=== PATIENT | female | born 1990 | race Caucasian/White ===

== ENCOUNTER → 2017-04-06 | Outpatient (CLI) | payer MEDICAID ==
[2017-04-06 14:22] LABS: ALANINE AMINOTRANSFERASE 17 U/L (9-52); ALBUMIN 3.8 g/dL (3.5-5.0); ALKALINE PHOSPHATASE 52 U/L (38-126); ANION GAP 11 (5-19); ASPARTATE AMINO TRANSFERASE 16 U/L (14-36); BILIRUBIN,DIRECT 0.2 mg/dL (0.0-0.4); BILIRUBIN,TOTAL 0.5 mg/dL (0.2-1.3); BLOOD UREA NITROGEN 9 mg/dL (7-20); CALCIUM 9.3 mg/dL (8.4-10.2); CARBON DIOXIDE 23 mmol/L (22-30); CHLORIDE 105 mmol/L (98-107); CREATININE RESULT 0.58 mg/dL (0.52-1.25); GLUCOSE 77 mg/dL (75-110); LDH 297 U/L (313-618); POTASSIUM 4.2 mmol/L (3.6-5.0); SODIUM 139.2 mmol/L (137-145); TOTAL PROTEIN 6.5 g/dL (6.3-8.2)
[2017-04-09 16:00] LABS: URINE PROTEIN 9.8 mg/dL (<12)
== END ==
LOC: OCH 12:35
PROVIDERS: ATTEND Nurse Practitioner Women's Health
DX: Z34.81 Encounter for supervision of other normal pregnancy, first trimester (principal)
CPT/HCPCS: 36415; 80053; 83615; 84156; 84550

== ENCOUNTER 2017-10-17 22:23 | Inpatient (IN) | payer MEDICAID ==
[2017-10-17 23:01] LABS: APPEARANCE,URINE CLOUDY; BILIRUBIN,URINE NEGATIVE (NEGATIVE); COLOR,URINE YELLOW; GLUCOSE, URINE NEGATIVE (NEGATIVE); KETONES,URINE NEGATIVE (NEGATIVE); LEUKOCYTE ESTERASE,URINE MODERATE (NEGATIVE); NITRITE,URINE NEGATIVE (NEGATIVE); PROTEIN,URINE NEGATIVE (NEGATIVE); URINE SPECIFIC GRAVITY 1.021
[2017-10-17 23:19] LABS: URINE AMPHETAMINES SCREEN NEGATIVE; URINE BARBITURATES SCREEN NEGATIVE; URINE BENZODIAZEPINES SCREEN NEGATIVE; URINE COCAINE SCREEN NEGATIVE; URINE MARIJUANA (THC) SCREEN NEGATIVE; URINE METHADONE SCREEN NEGATIVE; URINE PHENCYCLIDINE SCREEN NEGATIVE
--- NOTE | 2017-10-18 00:38 | Admission Physical ---
Datetime Report Generated by CPN: 10/18/2017 00:37 CURRENT ADMISSION Chief Complaint: Uterine Contractions Indication for Induction: Not Applicable Admit Impression : Term, Intrauterine Admit Plan: Initiate Labor Protocol ALLERGIES Medication Allergies: No Medication Allergies: No Known Allergies (10/18/2017) Latex: No Latex Allergies Food Allergies: N/a Environmental Allergies: N/A OBSTETRICAL HISTORY EDC: 10/13/2017 00:00 : 2 Para: 1 Term: 1 : 0 SAB: 0 IAB: 0 Ectopic: 0 Livin Cesareans: 0 VBACs: 0 Multiple Births: 0 Current Procedures: Ultrasound; NST Obstetrical History Comments: 2014 37 week , induced for PIH, 6lbs 4oz G2- current SEE RECORDS Alcohol: No Marijuana : No Cocaine: No Other Illicit Drugs: No Cigarettes: Never Smoker. [id number] PHYSICAL EXAM General: Normal HEENT: Normal Neurologic: Normal Thyroid: Normal Heart: Normal Lungs: Normal Breast: Deferred Back: Normal Abdomen: Normal Genitourinary Exam: Normal Extremities: Normal DTRs: Normal Pelvic Type: Adequate FETUS A EGA: 40.5 PLANS FOR LABOR AND DELIVERY Labor and Delivery: None INFORMED CONSENT Signature: with User ID: [email or web address]
[2017-10-18] MEDS ORDERED: DEXTROSE 5%-LACTATED RINGERS 1,000 ML IV PRN (00:39)
[2017-10-18] MEDS ORDERED: NALBUPHINE HCL INJ 10 MG/1 ML AMPULE INJ ONE (00:52)
[2017-10-18] MEDS ORDERED: OXYTOCIN/NORMAL SALINE 20 UNIT/1,000 ML RTUINJ ONE (00:55)
[2017-10-18] MEDS ORDERED: NALBUPHINE HCL INJ 10 MG/1 ML AMPULE ONE (00:55)
[2017-10-18] MEDS ORDERED: MISOPROSTOL 0.2 MG TABLET ONE (00:55)
[2017-10-18] MEDS ORDERED: LIDOCAINE 1% INJ-PF (10 MG/ML) 30 ML SDV ONE (00:55)
[2017-10-18 01:15] LABS: ABSOLUTE EOSINOPHILS # (AUTO) 0.1 10^3/uL (0.0-0.6); ABSOLUTE LYMPHOCYTES (AUTO) 2.6 10^3/uL (0.5-4.7); ABSOLUTE MONOCYTES (AUTO) 0.9 10^3/uL (0.1-1.4); ABSOLUTE NEUT (AUTO) 7.7 10^3/uL (1.7-8.2); BASOPHILS % (AUTO) 0.3 % (0-2); EOSINOPHILS % (AUTO) 0.6 % (0-6); HEMATOCRIT 30.1 % (36.0-47.0); HEMOGLOBIN 10.4 g/dL (12.0-15.5); LYMPHOCYTES % (AUTO) 23.1 % (13-45); MEAN CORPUSCULAR HEMOGLOBIN 30.7 pg (27.0-33.4); MEAN CORPUSCULAR HGB CONC 34.7 g/dL (32.0-36.0); MEAN CORPUSCULAR VOLUME 89 fl (80-97); MONOCYTES % (AUTO) 7.7 % (3-13); PLATELET COUNT 347 10^3/uL (150-450); SEGMENTED NEUTROPHILS % (AUTO) 68.3 % (42-78); TOTAL CELLS COUNTED % (AUTO) 100 %; WHITE BLOOD COUNT 11.3 10^3/uL (4.0-10.5)
[2017-10-18] MEDS ORDERED: OXYTOCIN 10 UNIT/ML VIAL ONE (05:21)
[2017-10-18] MEDS ORDERED: IBUPROFEN 800 MG TABLET ONE (05:36)
[2017-10-18] MEDS ORDERED: DIPH/PERTUSS(ACELL)/TETANUS VAC/PF 0.5 ML SYR (>=10YO) IM PRN (05:49)
[2017-10-18] MEDS ORDERED: ZOLPIDEM TARTRATE 5 MG TABLET PO PRN (05:49)
[2017-10-18] MEDS ORDERED: DIBUCAINE 1% OINTMENT 28 GM TP PRN (05:49)
[2017-10-18] MEDS ORDERED: BENZOCAINE/MENTHOL AEROSOL SPRAY 56 ML TOP PRN (05:49)
[2017-10-18] MEDS ORDERED: MEASLES,MUMPS&RUBELLA VACC/PF 0.5 ML VIAL SUBCUT PRN (05:49)
[2017-10-18] MEDS ORDERED: OXYTOCIN/NORMAL SALINE 20 UNIT/1,000 ML RTUINJ IV PRN (05:49)
[2017-10-18] MEDS ORDERED: ACETAMINOPHEN WITH CODEINE #3 TABLET PO PRN ×2 (05:49)
--- NOTE | 2017-10-18 07:01 | Delivery Summary ---
Del Sum A-C Datetime Report Generated by CPN: 10/18/2017 07:01 DELIVERY PERSONNEL DELIVERY PERSONNEL: [id number] Delivery Doctor:: Maris Barraza CNM Labor and Delivery Nurse:: Hedy Zaragoza RNethical hacker Nurse:: Corin Chaparro RN Laboratory Specialist/AURICULAR ACUPUNCTURIST: Brent Trotter CNA (Annotations: Data stored by [facility] on behalf of user) MATERNAL INFORMATION Delivery Anesthesia: None Medications After Delivery: Pitocin 10 Units IM Meds After Delivery Comment: Pitocin 20 units IM Maternal Complications: None Provider Comments: of viable male , head, shoulders, and body delivered without difficulty, with spontaneous cry and respirations, to maternal abdomen, very short cord, clamped X2 and cut free, spontaneous delivery of intact placetna, appears intact 3 VC, vagina and perineum inspected, 2nd degree vaginal laceration noted, repaired as above, hemostais acheived with external fundal massage and IV pitocin. Mother and in stable condition, routine pp care. LABOR SUMMARY EDC: 10/13/2017 00:00 No. Babies in Womb: 1 Attempted: No Labor Anesthesia: None LABOR INFORMATION Reason for Induction: Not Applicable Onset of Labor: 10/17/2017 22:40 Complete Dilatation: 10/18/2017 03:21 Oxytocin: N/A Group B Beta Strep: Negative Antibiotics # of Doses: 0 Antibiotics Time of Last Dose: N/A Name of Antibiotic Given: N/A Steroids Given: None Reason Steroids Not Administered: Not Applicable MEMBRANES Membranes Rupture Method: Artificial Rupture of Membranes: 10/18/2017 03:22 Length of Rupture (hr): 1.82 Amniotic Fluid Color: Clear Amniotic Fluid Amount: Moderate Amniotic Fluid Odor: Normal STAGES OF LABOR Stage 1 hr: 4 Stage 1 min: 41 Stage 2 hr: 1 Stage 2 min: 50 Stage 3 hr: 0 Stage 3 min: 6 Total Time in Labor hr: 6 Total Time in Labor min: 37 VAGINAL DELIVERY Episiotomy: None Laceration #1: Perineal Laceration Extension #1: Second Degree Laceration Repair: Yes Laceration Repair Note: repaired with 3-0 vicryl using lidocaine Sponge Count Correct: N/A Sharps Count Correct: N/A CSECTION DELIVERY Primary Indication: N/A Secondary Indication: N/A CSection Incidence: N/A Labor: N/A Elective: N/A CSection Incision: N/A BABY A INFORMATION Delivery Date/Time: 10/18/2017 05:11 Method of Delivery: Vaginal Born in Route : No : N/A Forceps: N/A Vacuum Extraction: N/A Shoulder Dystocia : No PRESENTATION/POSITION BABY A Presentation: Cephalic Cephalic Presentation: Vertex Vertex Position: Right Occipital Anterior Breech Presentation: N/A PLACENTA INFORMATION BABY A Placenta Delivery Time : 10/18/2017 05:17 Placenta Method of Delivery: Spontaneous Placenta Status: Delivered SCORES BABY A Heart Rate 1 min: >100 bpm Resp Effort 1 min: Good Cry Reflex Irritability 1 min: Cough or Sneeze or Pulls Away Muscle Tone 1 min: Active Motion Color 1 min: Blue/Pale Resuscitation Effort 1 min: Tactile Stimulation SCORE 1 MIN: 8 Heart Rate 5 min: >100 bpm Resp Effort 5 min: Good Cry Reflex Irritability 5 min: Cough or Sneeze or Pulls Away Muscle Tone 5 min: Active Motion Color 5 min: Body [place], Extremities Blue SCORE 5 MIN: 9 INFANT INFORMATION BABY A Gestational Age at Delivery: 40.5 Gestational Status: Full Term- 39- 40.6 Weeks Outcome : Liveborn Infant Condition : Stable Sex: Male IDENTIFICATION BABY A ID Band Number: [id number] Mother's Name Verified: Yes Infant RN Verifying Infant: K Shankar Rn/ B Kee RN WEIGHT/LENGTH BABY A Infant Birthweight (gm): 3500 Infant Weight (lb): 7 Infant Weight (oz): 11 Infant Length (in): 21.00 Length (cm): 53.34 CORD INFORMATION BABY A No. Cord Vessels: 3 Nuchal Cord : N/A Cord Blood Taken: Yes-For Storage (Mom's Blood type +) Suction: Mouth; Nose ASSESSMENT BABY A Infant Complications: None Physical Findings at Delivery: Caput Succedaneum; Molding of the Head Infant Respirations: Appears Normal Skin to Skin: Yes Skin to Skin Time (min): 60 Supervising Deputy/ALS Called : No Care By: Nkechi FortuneShankar RN Transferred To: Remains with Mother BABY B INFORMATION : N/A SIGNATURES Assignment: Renato Orellana MD Signature: with User ID: [email or web address] : with User ID: [email or web address]
[2017-10-18] MEDS: DOCUSATE SODIUM 100 MG CAPSULE PO SCH ×2 (09:11→17:23)
[2017-10-18] MEDS: FERROUS SULFATE 325 MG TABLET PO SCH ×2 (09:11→17:24)
[2017-10-18] MEDS: PRENATAL VITAMIN W DHA CAPSULE PO SCH (09:11)
[2017-10-18] MEDS: SENNOSIDES/DOCUSATE 8.6-50 MG 1 EACH TABLET PO SCH (09:12)
[2017-10-18] MEDS: IBUPROFEN 800 MG TABLET PO SCH ×3 (11:11→22:01)
[2017-10-18] MEDS ORDERED: DIPHENHYDRAMINE HCL 25 MG CAPSULE PO PRN (21:49)
[2017-10-19] MEDS: IBUPROFEN 800 MG TABLET PO SCH ×3 (06:25→22:25)
[2017-10-19 07:40] LABS: HEMATOCRIT 29.7 % (36.0-47.0); HEMOGLOBIN 10.1 g/dL (12.0-15.5); MEAN CORPUSCULAR HEMOGLOBIN 30.4 pg (27.0-33.4); MEAN CORPUSCULAR HGB CONC 34.2 g/dL (32.0-36.0); MEAN CORPUSCULAR VOLUME 89 fl (80-97); PLATELET COUNT 334 10^3/uL (150-450); RED BLOOD COUNT 3.34 10^6/uL (3.72-5.28); RED CELL DISTRIBUTION WIDTH 13.3 % (11.5-14.0); WHITE BLOOD COUNT 11.6 10^3/uL (4.0-10.5)
[2017-10-19] MEDS: SENNOSIDES/DOCUSATE 8.6-50 MG 1 EACH TABLET PO SCH (10:02)
[2017-10-19] MEDS: DOCUSATE SODIUM 100 MG CAPSULE PO SCH ×2 (10:02→18:35)
[2017-10-19] MEDS: FERROUS SULFATE 325 MG TABLET PO SCH ×2 (10:02→18:35)
[2017-10-19] MEDS: PRENATAL VITAMIN W DHA CAPSULE PO SCH (10:04)
--- NOTE | 2017-10-19 11:28 | PDOC PROGRESS REPORT ---
Subjective-OB Progress Note for:: 10/19/17 Subjective: Doing well, eating bkf, hsb at BS, Hsb sytates they do not want to circumcision , esting well, voiding Physical Exam (OB) Vital Signs: Temp Pulse Resp BP Pulse Ox 97.7 F 69 16 103/47 L 99 10/19/17 07:46 10/19/17 07:46 10/19/17 07:46 10/19/17 07:46 10/19/17 07:46 Intake & Output 10/18/17 10/19/17 10/20/17 06:59 06:59 06:59 Intake Total 800 Balance 800 Weight 69.7 kg - PIH/Pre-Eclampsia DTR's: 1 + Clonus: Negative Headache: Absent Epigastric Pain: No Visual Changes: No - Lochia Lochia Amount: Scant < 10 ml Lochia Color: Rubra/Red - Abdomen Description: Soft, Round Hernia Present: No Fundal Description: Firm, Midline Fundal Height: u/u - u/2 Objective-Diagnostic Laboratory: 10/19/17 07:17 10/19/17 07:17 WBC 11.6 H RBC 3.34 L Hgb 10.1 L Hct 29.7 L MCV 89 MCH 30.4 MCHC 34.2 RDW 13.3 Plt Count 334 Assessment and Plan(PN) - Assessment and Plan (1) Rubella nonimmune status, delivered, current hospitalization Is this a current diagnosis for this admission?: Yes - Time Spent with Patient Time with patient: Less than 15 minutes Medications reviewed and adjusted accordingly: Yes - Disposition Anticipated Discharge: Home Within: within 24 hours
[2017-10-20] MEDS: IBUPROFEN 800 MG TABLET PO SCH ×2 (05:26→14:05)
[2017-10-20 08:45] VITALS: BP 128/74
[2017-10-20] MEDS: DOCUSATE SODIUM 100 MG CAPSULE PO SCH (09:23)
[2017-10-20] MEDS: SENNOSIDES/DOCUSATE 8.6-50 MG 1 EACH TABLET PO SCH (09:23)
[2017-10-20] MEDS: PRENATAL VITAMIN W DHA CAPSULE PO SCH (09:23)
[2017-10-20] MEDS: FERROUS SULFATE 325 MG TABLET PO SCH (09:23)
--- NOTE | 2017-10-20 09:23 | PDOC DISCHARGE SUMMARY ---
Final Diagnosis Discharge Date: 10/20/17 - Final Diagnosis (1) Delivery normal Is this a current diagnosis for this admission?: Yes (2) Rubella nonimmune status, delivered, current hospitalization Is this a current diagnosis for this admission?: Yes Discharge Data - Discharge Medication Prescriptions: Docusate Sodium [Colace 100 mg Capsule] 100 mg PO BID #60 capsule Ferrous Sulfate [Feosol 325 mg Tablet] 325 mg PO BID #60 tablet Ibuprofen [Motrin 800 mg Tablet] 800 mg PO Q8 #60 tablet Home Medications: Albuterol Sulfate 2 puff PO ASDIR PRN 10/18/17 Prenat 115/Iron Fum/Folic/Dss [ 19 Tablet] 1 tab PO DAILY 10/18/17 Docusate Sodium [Colace 100 mg Capsule] 100 mg PO BID #60 capsule 10/20/17 Ferrous Sulfate [Feosol 325 mg Tablet] 325 mg PO BID #60 tablet 10/20/17 Ibuprofen [Motrin 800 mg Tablet] 800 mg PO Q8 #60 tablet 10/20/17 Gestational Age: 40.5 Reason(s) for Admission: Onset of Labor Procedures: NST Intrapartum Procedure(s): Spontaneous Vaginal Delivery Complication(s): Laceration-Perineal - Data Baby 1 Male at 1 minute: 8 at 5 minutes: 9 Weight: 3500 kg Home with Mother: Yes Complications: No - Diagnosis Test Laboratory: Temp Pulse Resp BP Pulse Ox 97.7 F 79 18 128/74 H 97 10/20/17 07:48 10/20/17 07:48 10/20/17 07:48 10/20/17 07:48 10/20/17 07:48 10/17/17 10/18/17 10/19/17 22:30 00:56 07:17 RBC 3.40 L 3.34 L Hgb 10.4 L 10.1 L Hct 30.1 L 29.7 L Urine Opiates Screen NEGATIVE - Discharge information/Instructions Discharge Activity: Activity As Tolerated, Pelvic Rest, No tub bath Discharge Diet: Regular Disposition: HOME, SELF-CARE Follow up with: [facility] in: 4, Weeks
== END 2017-10-20 17:20 | disposition home or self-care (01) | DRG 775 ==
LOC: LC 22:23 → LR 10-18 00:38 → 2S 10-18 07:56
PROVIDERS: ADMIT Obstetrics & Gynecology Gynecology; ATTEND Obstetrics & Gynecology Gynecology
PROC: 10E0XZZ Delivery of Products of Conception, External Approach (ICD-10-PCS; principal; 2017-10-18)
PROC: 0KQM0ZZ Repair Perineum Muscle, Open Approach (ICD-10-PCS; 2017-10-18)
PROC: 4A1HXCZ Monitoring of Products of Conception, Cardiac Rate, External Approach (ICD-10-PCS; 2017-10-18)
DX: O69.3XX0 Labor and delivery complicated by short cord, not applicable or unspecified (principal); O70.1 Second degree perineal laceration during delivery; Z37.0 Single live birth; Z3A.40 40 weeks gestation of pregnancy
CPT/HCPCS: 36415; 80307; 81005; 85025; 85027; 86592; 86850; 86900; 86901; J2300; J2590; J3490

== ENCOUNTER → 2017-10-27 | Outpatient (CLI) | payer MEDICAID ==
[2017-10-27 11:50] LABS: ABSOLUTE LYMPHOCYTES (AUTO) 1.8 10^3/uL (0.5-4.7); ABSOLUTE MONOCYTES (AUTO) 1.2 10^3/uL (0.1-1.4); ABSOLUTE NEUT (AUTO) 11.2 10^3/uL (1.7-8.2); BASOPHILS % (AUTO) 0.2 % (0-2); HEMATOCRIT 34.5 % (36.0-47.0); HEMOGLOBIN 11.7 g/dL (12.0-15.5); LYMPHOCYTES % (AUTO) 12.6 % (13-45); MEAN CORPUSCULAR HEMOGLOBIN 30.3 pg (27.0-33.4); MEAN CORPUSCULAR VOLUME 89 fl (80-97); MONOCYTES % (AUTO) 8.3 % (3-13); PLATELET COUNT 325 10^3/uL (150-450); RED BLOOD COUNT 3.87 10^6/uL (3.72-5.28); RED CELL DISTRIBUTION WIDTH 13.9 % (11.5-14.0); SEGMENTED NEUTROPHILS % (AUTO) 78.9 % (42-78); TOTAL CELLS COUNTED % (AUTO) 100 %; WHITE BLOOD COUNT 14.2 10^3/uL (4.0-10.5)
== END ==
LOC: OD 11:10
PROVIDERS: ATTEND Emergency Medicine
DX: R10.9 Unspecified abdominal pain (principal); R50.9 Fever, unspecified
CPT/HCPCS: 36415; 85025; 87086; 87088; 87186

== ENCOUNTER → 2017-11-16 | Outpatient (CLI) | payer MEDICAID ==
--- NOTE | 2017-11-16 18:31 | WOMENS IMAGING REPORT ---
EXAM DESCRIPTION: U/S BREAST UNILATERAL, COMPL COMPLETED DATE/TIME: 11/16/2017 8:00 am REASON FOR STUDY: BREAST MASS N63.0 UNSPECIFIED LUMP IN UNSPECIFIED BREAST COMPARISON: None. TECHNIQUE: Real-time and static grayscale imaging performed of the left whole breast targeted, patie nt has palpable abnormalities in the retroareolar region. Selected color Doppler images recorded. LIMITATIONS: None. FINDINGS: Patient is currently breast-feeding. She describes a palpable abnormality at the 12 o'martínez ck and 9 o'clock position left breast periareolar region. At the 12 o'clock position, a 2 x 1.6 cm simple cyst is present. At the 12 o'clock position a 6 x 5 mm cyst is present. At the 9 o'clock position a 6 x 6 mm cyst is present. IMPRESSION: Benign breast parenchymal cysts are present. No fluid-debris level with to suggest that these represent galactocele. BIRAD: 2 Benign findings. RECOMMENDATION: RECOMMENDED FOLLOW-UP: Follow-up as clinically indicated. COMMENT: The [employer] ([employer]) has developed recommendations for screening MRI of the breasts in certain patient populations, to be used in conjunction with mammography. Breast MRI s urveillance may be appropriate for women with more than 20% lifetime risk of developing breast cancer as determined by genetic testing, significant family history of the disease, or history of mantle r adiation for Hodgkins Disease. [employer]CR Practice Guidelines 2008. TECHNICAL DOCUMENTATION: JOB ID: [id number] indeni- All Rights Reserved Reading location - IP/workstation name: [email or web address]
== END ==
LOC: WI 07:33
PROVIDERS: ATTEND Student in an Organized Health Care Education/Training Program
DX: N60.02 Solitary cyst of left breast (principal); N63.42 Unspecified lump in left breast, subareolar
CPT/HCPCS: 76641

== ENCOUNTER 2017-12-14 09:10 | Day surgery (SDC) | payer MEDICAID ==
[2017-12-11 12:52] LABS: HEMATOCRIT 38.5 % (36.0-47.0); HEMOGLOBIN 13.3 g/dL (12.0-15.5); MEAN CORPUSCULAR HEMOGLOBIN 30.2 pg (27.0-33.4); MEAN CORPUSCULAR HGB CONC 34.6 g/dL (32.0-36.0); MEAN CORPUSCULAR VOLUME 87 fl (80-97); PLATELET COUNT 337 10^3/uL (150-450); RED BLOOD COUNT 4.42 10^6/uL (3.72-5.28); RED CELL DISTRIBUTION WIDTH 14.2 % (11.5-14.0); WHITE BLOOD COUNT 7.1 10^3/uL (4.0-10.5)
[2017-12-11 12:53] LABS: APPEARANCE,URINE CLEAR; BILIRUBIN,URINE NEGATIVE (NEGATIVE); COLOR,URINE YELLOW; GLUCOSE, URINE NEGATIVE (NEGATIVE); KETONES,URINE NEGATIVE (NEGATIVE); LEUKOCYTE ESTERASE,URINE NEGATIVE (NEGATIVE); NITRITE,URINE NEGATIVE (NEGATIVE); PROTEIN,URINE NEGATIVE (NEGATIVE); URINE SPECIFIC GRAVITY 1.021; UROBILINOGEN,URINE NEGATIVE mg/dL (<2.0)
[~2017-12-14 09:10] MED LIST: LACTATED RINGERS 1000 ML IV PRN; LIDOCAINE 0.5% INJ-PF (5 MG/ML) 50 ML SDV SUBCUT PRN
[2017-12-14] MEDS ORDERED: FENTANYL CITRATE INJ/PF 100 MCG/2 ML AMPUL ONE ×2 (09:31→10:16)
[2017-12-14] MEDS ORDERED: LIDOCAINE 2% INJ-PF (20 MG/ML) 10 ML AMPUL ONE (09:31)
[2017-12-14] MEDS ORDERED: ACETAMINOPHEN 1,000 MG/100 ML RTUPB IV ONE (09:32)
[2017-12-14] MEDS ORDERED: MIDAZOLAM 2 MG/2 ML INJ ONE (09:32)
[2017-12-14] MEDS ORDERED: PROPOFOL INJ 200 MG/20 ML VIAL IV ONE (09:32)
[2017-12-14] MEDS ORDERED: BUPIVACAINE HCL 0.25 % INJ/PF (2.5 MG/1 ML) 30 ML VIAL ONE (10:35)
[2017-12-14] MEDS ORDERED: PROMETHAZINE HCL INJ 25 MG/1 ML VIAL IV PRN (11:06)
[2017-12-14] MEDS ORDERED: MEPERIDINE HCL/PF INJ 25 MG/1 ML DISP.SYRIN IV PRN (11:06)
[2017-12-14] MEDS ORDERED: FENTANYL CITRATE INJ/PF 100 MCG/2 ML AMPUL IV PRN ×3 (11:06)
[2017-12-14] MEDS ORDERED: DIPHENHYDRAMINE HCL 50 MG/ML VIAL IV PRN (11:06)
[2017-12-14] MEDS: FENTANYL CITRATE INJ/PF 100 MCG/2 ML AMPUL ONE ×2 (11:42→11:47)
[2017-12-14] MEDS ORDERED: ONDANSETRON HCL INJ/PF 4 MG/2 ML SDV IV PRN (12:28)
[2017-12-14] MEDS ORDERED: HYDROMORPHONE HCL INJ/PF 2 MG/ML AMPULE IV PRN (12:29)
[2017-12-14] MEDS ORDERED: IBUPROFEN 800 MG TABLET PO PRN (12:30)
[2017-12-14] MEDS ORDERED: OXYCODONE-ACETAMINOPHEN 5-325 MG TABLET PO PRN ×2 (12:30)
[2017-12-14] MEDS ORDERED: DEXAMETHASONE SOD PHOSPHATE INJ 4 MG/1 ML VIAL ONE (13:22)
[2017-12-14] MEDS ORDERED: ONDANSETRON HCL INJ/PF 4 MG/2 ML SDV ONE (13:22)
[2017-12-14] MEDS ORDERED: SUCCINYLCHOLINE CHLORIDE INJ 200 MG/10 ML VIAL ONE (13:22)
[2017-12-14 13:34] VITALS: BP 124/78
--- NOTE | 2018-01-11 07:25 | Operative Report ---
Operative Report DATE OF SURGERY: 12/14/17 PREOPERATIVE DIAGNOSIS: Multiparity, Undesired Fertility POSTOPERATIVE DIAGNOSIS: MONICA, endometriosis OPERATION: Laparoscopic Bilateral Tubal Ligation with Filschie clips SURGEON: JOSELYN FU ANESTHESIA: GA TISSUE REMOVED OR ALTERED: None COMPLICATIONS: None ESTIMATED BLOOD LOSS: less than 5ml INTRAOPERATIVE FINDINGS: Normal uterus, normal tubes/ovaries, possible endometriosis implants in posterior cul de sac PROCEDURE: Anesthesiologist: Alejandra calderón MD, CRNA IV fluids: [700ml] Urine output: [300ml] Indications: [27yo with undesired fertility. She is 100% sure that she has completed childbearing and desires to have permanent sterilization. The risks, benefits, alternatives reviewed and she desires to proceed with planned procedure. ] Procedure: The patient was taken to the operating room where general anesthesia was obtained without difficulty. The patient was then examined under anesthesia with findings as noted above with a small anteverted uterus. She was then placed in dorsal supine lithotomy position and prepped and draped in the normal sterile fashion. [place] speculum was then placed in the patient's vagina and the anterior lip of the cervix grasped with a single-tooth tenaculum. A Gluster uterine manipulator was then advanced into the uterus to provide a means of manipulation of the uterus. The speculum and tenaculum were then removed from the patient's cervix and vagina. Attention was then turned to the patient's abdomen where a 5 mm infraumbilical skin incision was then made. The Optiview trocar with 0 laparoscope was then advanced without difficulty under direct visualization with the Optiview trocar. This was performed while tenting the abdominal wall and these will fashion. Intraperitoneal placement was confirmed by the direct visualization. Pneumoperitoneum was then obtained with approximately 4 L carbon dioxide gas. Survey of the patient's abdomen and pelvis revealed findings as noted above. A second skin incision was then made approximately 2 cm superior to the pubic symphysis in the midline. This incisions were made under direct visualization with the laparoscope. The second trochar was then advanced under direct visualization of the laparoscope at the site. The right fallopian tube was then identified and followed out to the fimbriated end and the Filschie clips times 2 were placed in the mid ampullary portion of the fallopian tube. This procedure was repeated on the patients left. Thus completed bilateral tubal ligation with filschie clips times 2 on each side. All operative sites were visualized and noted to be hemostatic. The midline suprapubic trochar was then removed under direct visualization. The infraumbilical trochar was then removed after abdominal insufflation was removed. The skin at all trochar sites were closed with 3-0 Monocryl in a subcuticular fashion with overlying Dermabond. No antibiotics were indicated for this procedure. After completion of skin closure of the trochar sites attention was then turned to the vagina where the [place] uterine manipulator was removed and the bivalve speculum was replaced. Silver nitrate was applied to the tenaculum sites for hemostasis and the speculum was removed. Sponge lap needle and instrument counts were correct 3. The patient tolerated the procedure well and was taken to the recovery area awake and in stable condition.
== END 2017-12-14 13:36 | disposition home or self-care (01) ==
LOC: OROUT 09:10
PROVIDERS: ATTEND Student in an Organized Health Care Education/Training Program
DX: Z30.2 Encounter for sterilization (principal); J45.990 Exercise induced bronchospasm
CPT/HCPCS: 36415; 85027; 81005; 81025; 58671; J2250; J1100; J3010; J0330; J2405; S0020; J2704; J3490; J0131; 851